=== PATIENT | female | born 1945 ===

== ENCOUNTER → 2021-12-12 14:17 | Outpatient (BNVA) | payer OTHER, MEDICARE, SELFPAY | PROVIDERS: Visit Provider Nurse Practitioner Family | DX: Z13.89 Encounter for screening for other disorder (principal) ==

== ENCOUNTER → 2022-12-16 09:21 | Outpatient (BNVA) | payer OTHER, MEDICARE, SELFPAY | PROVIDERS: PCP Clinical Nurse Specialist; Visit Provider Nurse Practitioner Family | DX: Z13.89 Encounter for screening for other disorder (principal) ==

== ENCOUNTER 2023-12-20 09:42 | Outpatient (AMB) | payer MEDICARE, OTHER, SELFPAY ==
--- NOTE | 2023-12-20 09:50 | MHC.OFFVIS ---
Vital Signs 12/20/23 09:53 Height 5 ft Weight 151 lb 2 oz BMI 29.5 BP 100/64 Blood Pressure Location Rt brachial Position Sitting Pulse 54 Pulse Source Pulse Oximeter Pulse Oximetry (%) 98 Oxygen Delivery Method Room Air Intake Visit Reasons: 1yr Follow up Sleep-Unable to conf #'s not in svs Intake Note: Patient presents for follow up sleep. patient sleep is not better still having some issues. Allergies No Known Allergies Allergy (Verified 12/20/23 09:54) HPI Comments Details: 78-yr-old female presents for annual f/u visit. Pt denies any significant interval medical changes. Pt reports she is sleeping ok. Only uses her CPAP sometimes Her left hand tremor is stable. She is does hand exercises and stretching. She continues to knit and jorge. Not noticing any stiffness. Denies hyposmia. Denies orthostatic lightheadedness. Denies recent constipation- uses epsom salt laxative prn. Notes she cannot eta corn or nuts d/t diverticulosis. Her leg cramps are better w/ the OTC spray. Deneis falls or gait changes. She is exercising- states she never rests. [facility] Medical History (Updated 12/16/22 @ 18:41 by SHANT Coleman) HTN (hypertension) Social History Alcohol intake: current Alcohol intake frequency: holidays/special occasions only Patient Tobacco Use Status: Never used Tobacco Physical Exam Vital Signs: Last Vital Signs Pulse 54 12/20/23 09:53 BP 100/64 12/20/23 09:53 Pulse Ox 98 12/20/23 09:53 Oxygen Delivery Method Room Air 12/20/23 09:53 BMI result Body Mass Index 29.5 Const General: cooperative and no acute distress Resp Effort & Inspection: normal respiratory effort and able to speak in complete sentences Neuro Other: A&O x's 3. Very mild LUE intermittent rest and postural tremor. Mild left elbow rigidity. FFM- Very mild decrease. CHIDI- slight decreased fluidity in LUE. Foot taps- Very mild decrease in LLE. Gait- stands easily, Cranial nerves: Yes CN's II-XII intact bilaterally Cognition (Neuro): normal cognition Psych Appearance: grossly normal Mental Status: mental status grossly normal Speech and movement: Clear speech present Affect: normal affect Attitude: cooperative Assessment & Plan Assessment & Plan (1) Tremor: Comment: Probably benign tremor - mild progression with L > R UE tremor, stiffness, constipation, decreased LLE foot taps Code(s): R25.1 - Tremor, unspecified Category: Medical (2) Severe obstructive sleep apnea: Comment: PSG 06-19-15 -AHI 38 lowest O2 at 77%. Not using CPAP Code(s): G47.33 - Obstructive sleep apnea (adult) (pediatric) Category: Medical (3) Periodic limb movement sleep disorder: Comment: PLMD- 38/hr. Code(s): G47.61 - Periodic limb movement disorder Category: Medical Plan Encouraged increasing CPAP use. Monitor tremor clinically. OTC balms prn for cramps/stiffness. f/u in 1 yr or sooner prn Coding Level of Care Code Est Pt Level 3 (40173) Diagnoses Tremor R25.1 Severe obstructive sleep apnea G47.33 Periodic limb movement sleep disorder G47.61
[2023-12-20 09:53] VITALS: BP 100/64; PULSE 54; O2SAT 98; BMI 29.5
== END 2023-12-20 10:39 | disposition home or self-care (01) ==
LOC: HO.HSMS 09:48
PROVIDERS: PCP Clinical Nurse Specialist; Visit Provider Nurse Practitioner Family
DX: R25.1 Tremor, unspecified (principal); G47.33 Obstructive sleep apnea (adult) (pediatric); G47.61 Periodic limb movement disorder
CPT/HCPCS: 99213

== ENCOUNTER → 2023-12-20 09:48 | Outpatient (BNVA) | payer MEDICARE, OTHER, SELFPAY | PROVIDERS: PCP Clinical Nurse Specialist; Visit Provider Nurse Practitioner Family | DX: G47.33 Obstructive sleep apnea (adult) (pediatric) (principal); G47.61 Periodic limb movement disorder; R25.1 Tremor, unspecified | CPT/HCPCS: 99212 ==

== ENCOUNTER 2025-05-02 13:54 | Outpatient (AMB) | payer MEDICARE, OTHER, SELFPAY ==
--- NOTE | 2025-05-02 13:56 | MHC.OFFVIS ---
Vital Signs 05/02/25 13:57 Weight 138 lb BP 120/70 Blood Pressure Location Rt brachial Position Sitting Pulse 78 Pulse Source Pulse Oximeter Pulse Oximetry (%) 98 Oxygen Delivery Method Room Air Intake Visit Reasons: 1 year F/U Intake Note: Patient presents for follow up sleep. patient sleep is not better still having some issues. Environment Coordinator Required: No Accompanied by: Self / Same As Patient Allergies No Known Allergies Allergy (Verified 05/02/25 14:02) Medication List - Last Reconciled 05/02/25 by SHANT Coleman alendronate mg PO amlodipine 2.5 mg PO DAILY atenolol 25 mg PO DAILY simvastatin 20 mg PO BEDTIME spironolacton-hydrochlorothiaz 25-25 mg 1 tab PO DAILY valsartan 80 mg PO DAILY HPI Comments Details: 79-yr-old female presents for annual f/u visit. Pt denies any significant interval medical changes. Other than some weight loss, which may be attributed Pt reports she is sleeping ok, and so is not using her CPAP anymore. Sometimes dozes off when reading. Her left hand tremor is overall stable, but may notice it when holding a cup of tea when walking. She still does hand exercises and stretching. She continues to knit and jorge. Also doing puzzles. Denies stiffness. Denies hyposmia. Denies orthostatic lightheadedness. Denies recent constipation- uses epsom salt laxative prn. Avoids eats corn or nuts d/t diverticulosis. Her leg cramps are better w/ the OTC spray. Denies falls or gait changes. She is exercising- does home stretches. [facility] Medical History (Updated 12/16/22 @ 18:41 by SHANT Coleman) HTN (hypertension) Social History Alcohol intake: current Alcohol intake frequency: holidays/special occasions only Patient Tobacco Use Status: Never used Tobacco Physical Exam Vital Signs: Last Vital Signs Pulse 78 05/02/25 13:57 BP 120/70 05/02/25 13:57 Pulse Ox 98 05/02/25 13:57 Oxygen Delivery Method Room Air 05/02/25 13:57 Const General: cooperative and no acute distress Resp Effort & Inspection: normal respiratory effort and able to speak in complete sentences Neuro Other: A&O x's 3. Very mild LUE intermittent rest and postural tremor. Mild left elbow rigidity. FFM- Very mild decreased. Foot taps- Very mild decrease in LLE. Gait- stands easily, good stride, steady gait. Cranial nerves: Yes CN's II-XII intact bilaterally Cognition (Neuro): normal cognition Psych Appearance: grossly normal Mental Status: mental status grossly normal Speech and movement: Clear speech present Affect: normal affect Attitude: cooperative Assessment & Plan Assessment & Plan (1) Tremor: Comment: Probably benign tremor - mild progression with L > R UE tremor, stiffness, constipation, decreased LLE foot taps Code(s): R25.1 - Tremor, unspecified Category: Medical (2) Severe obstructive sleep apnea: Comment: PSG 06-19-15 -AHI 38 lowest O2 at 77%. Not using CPAP Code(s): G47.33 - Obstructive sleep apnea (adult) (pediatric) Category: Medical (3) Periodic limb movement sleep disorder: Comment: PLMD- 38/hr. Code(s): G47.61 - Periodic limb movement disorder Category: Medical Plan Patient has stopped using her CPAP use. Monitor tremor clinically. OTC balms prn for cramps/stiffness. Continue to do regular exercise. Continue regular socialization and cognitively stimulating activities. Conitor to monitor tremor. f/u in 1 yr or sooner prn Coding Level of Care Code Est Pt Level 3 (71307) Diagnoses Tremor R25.1 Severe obstructive sleep apnea G47.33 Periodic limb movement sleep disorder G47.61
[2025-05-02 13:57] VITALS: BP 120/70; PULSE 78; O2SAT 98
--- OUTSIDE RECORDS SUMMARY | 2025-05-02 16:03 | XMS_ITS | Clinical Summary ---
Author Organization [facility] [address] [place] [address] [place] [phone] Phone Care Team Providers Care Revenue Accountant Name Role Phone Gianna Horowitz MD Primary Care Provider [phone] Allergies Active Allergy Reactions Criticality Noted Date Comments Billy Inhibitors Cough 05/16/2013 Medications BIOTIN ORAL Take 2 Tabs by mouth daily. Active multivitamin (DAILY VITAMIN ORAL) VITAMIN D OR Take 2 Tabs by mouth daily. Active zolpidem (AMBIEN) 5 mg tablet 1 TABLET AT BEDTIME NEEDED 01/10/2010 Active valsartan (DIOVAN) 80 mg tablet TAKE 1 TABLET BY MOUTH EVERY DAY 03/17/2024 Active aspirin 81 mg EC tablet 1 TABLET DAILY Active amLODIPine (NORVASC) 2.5 mg tablet Take 1 tablet (2.5 mg total) by mouth 1 (one) time each day. 90 tablet 1 12/25/2024 Active atenoloL (TENORMIN) 25 mg tablet TAKE 1 TABLET BY MOUTH EVERY DAY 90 tablet 1 02/22/2025 Active spironolactone- hydroCHLOROthia zide (ALDACTAZIDE) 25-25 mg per tablet TAKE 1 TABLET BY MOUTH EVERY DAY 90 tablet 1 02/22/2025 Active simvastatin (ZOCOR) 20 mg tablet TAKE 1 TABLET BY MOUTH EVERYDAY AT BEDTIME 90 tablet 1 03/12/2025 Active alendronate (FOSAMAX) 70 mg tablet TAKE 1 TABLET BY MOUTH ONE TIME PER WEEK 12 tablet 1 03/12/2025 Active Active Problems Problem Noted Date Diagnosed Date Pre-diabetes 07/11/2024 Tremor 02/24/2023 CKD (chronic kidney disease) stage 3, GFR 30-59 ml/min (CMS/HCC V24, CMS/HCC V28) 12/03/2021 Age-related osteoporosis without fracture 2019 CELY on CPAP 02/02/2018 Depression 06/19/2014 Pure hypercholesterolemia 01/10/2010 Benign neoplasm of rectum and anal canal 008 Overview (06/01/2024): Large rectal polyp removed at colonoscopy 07/20/2008:Tubular adenoma. Negative colonoscopy 09/25/2011, no colon cancer screening needed for 5 years. Diverticulitis of colon without hemorrhage 07/20 Overview (06/01/2024): Incidental finding at colonoscopy 07/20/2008. Diverticulosis throughout the entire colon. 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 Controlled diabetes mellitus type II without complication [place] [place] [facility] [place] 07/15/2007 Overview (06/01/2024): Last Assessment & Plan: Checking Your Blood Sugars Please check your blood sugars every day. Please check your sugars at the following times of day: before breakfast Your Blood Sugar Goals Pre Meal: 90-130 2 hours after meals: 110-160 Bedtime: 110-150 Use the Results Bring your glucometer to every appointment Write your fingerstick blood sugars down on a log sheet or record book. Bring them to your appointment Look for patterns in the numbers. The results help you and your provider make decisions about your diabetes treatment plan. Your Results and your Goals Your Result / Date of Completion Your Goal / How Often to Assess Component Value Date HGBA1C 6.5 01/24/2016 Less than 7% --- 2-4 times per year BP Readings from Last 1 Encounters: 02/04/16 158/88 Less than 140/90 --- once per year Component Value Date MALBCR 7.8 01/24/2016 Less than 30 --- once per year Component Value Date LDL 87 01/24/2016 Less than 100 --- once per year Wt Readings from Last 1 Encounters: 02/04/16 163 lb 8 oz (74.163 kg) Your goal weight by next visit: 155lb --- reassess 2-4 times a year Health Maintenance Due Topic Date Due ? Hepatitis C Screening 1995 ? Adult Immunization: Zostavax For Patients Over 60 2005 ? Pneumococcal Vaccine (#2 of 2 - Dose 1 = PPSV23, Dose 2= PCV13) 03/04/2013 ? Diabetes: Annual Eye Exam 02/19/2015 ? Diabetes: Annual Foot Exam 06/19/2015 ? Diabetes: Annual Care Plan 06/19/2015 Your Action Plan Your diabetes is well controlled and no changes are required to your current plan. Check blood glucose as directed and write down all results. Continue to work on weight loss with a goal of losing 2-4 pounds per month Contact me if you experience any barriers to care such as inability to purchase your medication, difficulty getting to your appointments or difficulty understanding your care plan When to Call your Healthcare Provider If your blood sugar falls below 70 and you do not know why or you become unconscious If you are sick and unable to take liquids because or nausea or vomiting If you have a fever over 101 If your blood sugar is 300 or higher on greater than 3 separate occasions during the same week If you are just unsure what to do Educational Resources [place] [employer] (www.diabetes.org) Centers for Disease Control and Prevention (www.cdc.gov/diabetes) This care plan was created in collaboration with Marlen Yan on 02/04/2016 Pain in limb 12/10/2006 Overview (06/01/2024): pain on the tip of the left fifth finger. Essential hypertension, benign 05/28/2006 Immunizations Name Administration Dates Next Due Influenza trivalent, 0.5mL ( Fluzone High-dose) 65yo and older 07/07/2021,05/18/2018,05/25/2016,06/20,06/19/2014,05/16/2013,06/08/2012 ,07/04/2010,05/21/2009 Influenza, Unspecified 05/27/2023 Pneumococcal conjugate 13 va lent (Prevnar 13, PCV13) 2mo and older 01/16/2019 Pneumococcal conjugate 20 va lent (Prevnar 20, PCV 20) 2mo and older 06/29/2023 Pneumococcal polysaccharide 23 valent (Pneumovax 23) 2yo and older 03/04/2012,01/09/2002 Tdap Tetanus diptheria acell ular pertussis (Boostrix; Adacel) 7yo and older 06/29/2023,02/08/2009 Surgical History Surgery Date Site/Laterality Comments COLONOSCOPY 07/20/2008 PROCEDURE: HISTORICAL COLONOSCOPY; COMMENT: Large rectal polyp: Tubular adenoma. HYSTERECTOMY PROCEDURE: HISTORICAL VAGINAL HYSTERECTOMY W/O BSO COLONOSCOPY 09/25/2011 PROCEDURE: HISTORICAL COLONOSCOPY; COMMENT: diverticulosis; no polyps. BREAST LUMPECTOMY PROCEDURE: ---- BREAST LUMP BIOPSY ----; COMMENT: DCIS 1998 BREAST SURGERY 2001ish Bilateral PROCEDURE: [place] UNLISTED PROCEDURE BREAST COLONOSCOPY 11/16/2016 PROCEDURE: HISTORICAL COLONOSCOPY; COMMENT: no polyps. BREAST BIOPSY Bilateral PROCEDURE: BX BREAST; PERC NEEDLE CORE W/IMAG GUID; COMMENT: dcis rt BREAST BIOPSY 05/22/2020 Right PROCEDURE: [place] BX BREAST W/DEVICE 1ST LESION ULTRASOUND GUID; COMMENT: apocrine metaplasia Medical History Medical History Date Comments Essential hypertension, benign 05/28/2006 D X:Essential hypertension, benign Other abnormal blood chemistry 09/17/2006 D X:Other abnormal blood chemistry Diverticulosis of colon (wit hout mention of hemorrhage) 07/20/2008 DX:Diverticulosis of colon ( without mention of hemorrhage); COMMENT: Incidental finding at colonoscopy 07/20/2008. Benign neoplasm of rectum an d anal canal 07/20/2008 DX:Benign neoplasm of rectum and anal canal; COMMENT: Large rectal polyp removed at colonoscopy 07/20/2008: Pure hypercholesterolemia 01/10/2010 DX:Pur e hypercholesterolemia Depression 06/19/2014 DX:Depression Personal history of malignan t neoplasm of breast 1980ish DX:Personal history of malig nant neoplasm of breast; COMMENT: bilat Colon polyps DX:Colon polyps Encounter for screening colonoscopy DX:Encounter for screening colonoscopy Family History Medical History Relation Name Comments Diabetes Brother 1 at age late 60 Prostate cancer Brother 2 Prostate cancer Father Breast cancer Mother 77 Diabetes Mother 77 Colon cancer Neg Hx Ovarian cancer Neg Hx Relation Name Status Comments Brother 1 Brother 2 Father Mother 77 Social History Tobacco Use Types Packs/Day Years Used Date Smoking Tobacco: Never Smokeless Tobacco: Never Tobacco Cessation:Counseling Given: Not Answered Alcohol Use Standard Drinks/Week Comments Yes 0 (1 standard drink = 0.6 oz pur e alcohol) Comments Unknown Sex and Gender Information Value Date Recorded Sex Assigned at Not on file Legal Sex Female 2:28 PM EST Gender Identity Not on file Sexual Orientation Not on file Obstetrics History Last Filed Vital Signs Vital Sign Reading Time Taken Comments Blood Pressure 110/70 01/10/2025 11:00 AM EDT Pulse 64 01/10/2025 11:00 AM EDT Temperature 36.2 C (97.1 F) 01/10/2025 11:00 AM EDT Respiratory Rate 20 01/10/2025 11:00 AM EDT Oxygen Saturation - - Inhaled Oxygen Concentration - - Weight 61.7 kg (136 lb) 01/10/2025 11:00 AM EDT Height 160 cm (5' 3 ) 01/10/2025 11:00 AM EDT Body Mass Index 24.09 01/10/2025 11:00 AM EDT Plan of Treatment Upcoming Encounters Date Type Department Care Team (Late st Contact Info) Description 05/14/2025 8:45 AM EDT Office Visit [facility] [address] [phone] Heber Flannery NP [address] [place], [place] 06/11/2025 9:00 AM EDT Appointment Radiology Department - [address] [phone] Health Maintenance Due Date Last Done Comments Zoster Vaccines (1 of 2) 1964 RSV Immunization Adult Patients (1 - 1-dose 75+ series) 2020 Falls Risk Assessment 08/08/2022 Medicare Annual Wellness Visit 08/08/2022 Social Influencers of Health Screening 08/08/2022 Diabetes: Annual Foot Exam 06/29/2024 06/29/2023 Depression Screening 08/30/2024 COVID-19 Vaccine (4 - Moderna risk season) 2024 06/12/2024, 02/14/2021, 01/14/2021 Diabetes: Annual Urine Albumin-Creatinine Ratio (uACR) 01/03/2025 01/04/2024 Influenza Vaccine (#1) 2025 4, 05/31/2023, 05/27/2023, Additional history exists Diabetes: Blood Sugar Control Test (HGBA1C) 07/12/2025 01/09/2025, 07/06/2024, 01/04/2024, Additional history exists Diabetes: Annual Retina Eye Exam 12/04/2025 12/04/2024, 06/29/2023 Diabetes: Annual GFR (Glomerular Filtration Rate) 01/09/2026 01/09/2025, 07/31/2024, 07/06/2024, Additional history exists Hypertension/CHF/CAD Annual BMP Blood Test 01/09/2026 01/09/2025, 07/31/2024, 07/06/2024, Additional history exists Colorectal Cancer Screening: Colonoscopy 10/15/2028 10/15/2023 Cholesterol Screening (Lipid Panel) 01/09/2030 01/09/2025, 07/06/2024, 02/22/2023 DTaP,Tdap,and Td Vaccines (3 - Td or Tdap) 06/29/2033 06/29/2023, 02/08/2009 Osteoporosis Screening (Bone Density Screening) 04/30/2035 04/30/2020, 12/02/2016 Hepatitis C Screening Completed 02/22/2023 Pneumococcal Vaccine: 50+ Years Completed 06/29/2023, 01/16/2019, 08/09/2017, Additional history exists HIB Vaccines Aged Out No longer eligi ble based on patient's age to complete this topic HPV Vaccines Aged Out No longer eligi ble based on patient's age to complete this topic Hepatitis A Vaccines Aged Out No long er eligible based on patient's age to complete this topic Hepatitis B Vaccines Aged Out No long er eligible based on patient's age to complete this topic IPV Vaccines Aged Out No longer eligi ble based on patient's age to complete this topic MMR Vaccines Aged Out No longer eligi ble based on patient's age to complete this topic Meningococcal ACWY Vaccine Aged Out N o longer eligible based on patient's age to complete this topic Meningococcal B Vaccine Aged Out No l onger eligible based on patient's age to complete this topic RSV Immunization Patients Under 20 months Aged Out No longer eligible based on patient's age to complete this topic Varicella Vaccines Aged Out No longer eligible based on patient's age to complete this topic Procedures Procedure Name Priority Date/Time Associated Diagnosis Comments COMPREHENSIVE METABOLIC PANEL Routine 01/09/2025 12:15 PM EDT Controlled type 2 diabetes mellitus without complication, unspecified whether long-term insulin use ([facility] V24, [facility] V28) HEMOGLOBIN A1C Routine 01/09/2025 12:15 PM EDT Controlled type 2 diabetes mellitus without complication, unspecified whether rn long term care insulin use ([facility] V24, [facility] V28) LIPID PANEL WITH REFLEX TO DIRECT LDL Routine 01/09/2025 12:15 PM EDT Controlled type 2 diabetes mellitus without complication, unspecified whether long-term insulin use ([facility] V24, [facility] V28) URINE ALBUMIN CREATININE RATIO Routine 01/04/2024 COLONOSCOPY Routine 10/15/2023 DIABETES EYE EXAM Routine 06/29/2023 DIABETES FOOT EXAM Routine 06/29/2023 HEPATITIS C SCREENING Routine 02/22/2023 DXA BONE DENSITY STUDY 1+ SITS AXIAL SKEL Routine 04/30/2020 10:09 AM EDT Other osteoporosis without current pathological fracture from Last 3 Months or Most Recently Relevant to Health Maintenance Results * Lipid panel with reflex to direct LDL (01/09/2025 12:15 PM EDT) Cholesterol 137 0 - 200 mg/dL LAB CHEMISTRY METHOD 01/09/2025 4:05 PM EDT [facility] Triglycerides 100 0 - 150 mg/dL LAB CHEMISTRY METHOD 01/09/2025 4:05 PM EDT [facility] HDL 49 >=40 mg/dL LAB CHEMISTRY METHOD 01/09/2025 4:05 PM EDT [facility] LDL Calculated 68 0 - 100 mg/dL LAB CHEMISTRY METHOD 01/09/2025 4:05 PM EDT [facility] VLDL Cholesterol Del 20 mg/dL LAB CHEMISTRY METHOD 01/09/2025 4:05 PM EDT [facility] Non HDL Chol. (LDL+VLDL) 88 <145 mg/dL LAB CHEMISTRY METHOD 01/09/2025 4:05 PM EDT [facility] Chol/HDL Ratio 2.8 0.0 - 4.4 LAB CHEMISTRY METHOD 01/09/2025 4:05 PM EDT [facility] Blood Venous blood specimen / Unknown Venipuncture / Unknown 01/09/2025 12:15 PM EDT 01/09/2025 12:15 PM EDT us Gianna Horowitz MD LAB BLOOD ORDERABLES Final Resul t Performing Organization Address [facility]/ZIP Co de Phone Number [facility] [address] [place] [address], [place] [phone] * Hemoglobin A1c (01/09/2025 12:15 PM EDT) Hemoglobin A1C 6.4 <6.5 % LAB CHEMISTRY METHOD 01/09/2025 10:21 PM EDT [facility] Mean Bld Glu Estim. 137 mg/dL LAB CHEMISTRY METHOD 01/09/2025 10:21 PM EDT [facility] Blood Venous blood specimen / Unknown Venipuncture / Unknown 01/09/2025 12:15 PM EDT 01/09/2025 12:15 PM EDT us Gianna Horowitz MD LAB BLOOD ORDERABLES Final Resul t Performing Organization Address City/[facility]/ZIP Co de Phone Number [facility] [address] [place] [address], [place] [phone] * (ABNORMAL) Comprehensive metabolic panel (01/09/2025 12:15 PM EDT) Sodium 139 133 - 145 mmol/L LAB CHEMISTRY METHOD 01/09/2025 4:[address] [facility] Potassium 3.9 3.5 - 5.5 mmol/L LAB CHEMISTRY METHOD 01/09/2025 4:[address] [facility] Chloride 103 96 - 110 mmol/L LAB CHEMISTRY METHOD 01/09/2025 4:[address] [facility] CO2 31 21 - 32 mmol/L LAB CHEMISTRY METHOD 01/09/2025 4:[address] [facility] Anion Gap 5 3 - 11 LAB CHEMISTRY METHOD 01/09/2025 4:[address] [facility] Glucose 105(H) 70 - 100 mg/dL LAB CHEMISTRY METHOD 01/09/2025 4:[address] [facility] BUN 26(H) 5 - 25 mg/dL LAB CHEMISTRY METHOD 01/09/2025 4:[address] [facility] Creatinine 1.20(H) 0.50 - 1.10 mg/dL LAB CHEMISTRY METHOD 01/09/2025 4:[address] [facility] eGFR 46(L) >=60 mL/min/1. 73m2 LAB CHEMISTRY METHOD 01/09/2025 4:[address] [facility] Comment:Calculation based on the Chronic Kidney Disease Epidemiology Collaboration (CKD-EPI) equation refit without adjustment for race. BUN/Creatinine Ratio 21.7 LAB CHEMISTRY METHOD 01/09/2025 4:[address] [facility] Calcium 9.7 8.5 - 10.5 mg/dL LAB CHEMISTRY METHOD 01/09/2025 4:[address] [facility] AST (SGOT) 23 10 - 42 unit/L LAB CHEMISTRY METHOD 01/09/2025 4:[address] [facility] ALT (SGPT) 25 10 - 60 unit/L LAB CHEMISTRY METHOD 01/09/2025 4:05 PM EDT [facility] Alkaline Phosphatase 84 42 - 121 unit/L LAB CHEMISTRY METHOD 01/09/2025 4:05 PM EDT [facility] Total Protein 8.0 6.0 - 8.0 g/dL LAB CHEMISTRY METHOD 01/09/2025 4:05 PM EDT [facility] Albumin 4.1 3.2 - 5.0 g/dL LAB CHEMISTRY METHOD 01/09/2025 4:05 PM EDT [facility] Total Bilirubin 0.4 0.0 - 1.4 mg/dL LAB CHEMISTRY METHOD 01/09/2025 4:05 PM EDT [facility] Blood Venous blood specimen / Unknown Venipuncture / Unknown 01/09/2025 12:15 PM EDT 01/09/2025 12:15 PM EDT Gianna Horowitz MD LAB BLOOD ORDERABLES Final Resul t [facility] [address] [place] [address], [place] [phone] * Urine Albumin Creatinine Ratio (01/04/2024) [facility] Urine Albumin Creatinine Ratio Abstracted [facility] Provider HEALTH MAINTENANCE Final Result * Colonoscopy (10/15/2023) [facility] Colonoscopy No Interpretation , Abstracted Anatomical Region Laterality Modality Other [facility] Provider HEALTH MAINTENANCE Final Result * Diabetes Foot Exam (06/29/2023) [facility] Diabetes: Annual Foot Exam Abstracted Result [facility] Darrell FOY HEALTH MAINTENANCE Final Result * Diabetes Eye Exam (06/29/2023) [facility] Diabetes: Annual Retina Eye Exam Abstracted Result [facility] Darrell FOY HEALTH MAINTENANCE Final Result * Hepatitis C Screening (02/22/2023) [facility] Hepatitis C Screening Abstracted us Historical Provider HEALTH MAINTENANCE Final Result * DXA BONE DENSITY STUDY 1+ SITS AXIAL SKEL (04/30/2020 10:09 AM EDT) Anatomical Region Laterality Modality Bone Densitometr y 01/08/2020 9:49 AM EDT Narrative 05/01/2020 1:03 PM EDT BONE DENSITY (DEXA) Lumbar Spine T-score is 3.3. (SD relative to 20-29 y/o adult) Z-score is 5.0. (SD relative to age matched peers) This is considered normal by WHO criteria. Left Hip T-score is 1.7. Z-score is 2.1. This is considered normal by WHO criteria IMPRESSION: This patient is considered to have normal bone density by WHO criteria. The [facility] Department of Internal Medicine recommends using National Osteoporosis Foundation (NOF) guidelines in treatment decisions related to osteoporosis. NOF guidelines suggest considering treatment for postmenopausal women and men aged 50 or older presenting with the following: History of hip or vertebral fracture. T-score = -2.5 (DXA) at the femoral neck, total hip, or spine, after appropriate evaluation to exclude secondary causes. Low bone mass (T-score between -1.0 and -2.5 at the femoral neck or spine) AND a 10-year probability of a hip fracture = 3% OR a 10-year probability of a major osteoporosis-related fracture = 20% based on the [place]-adapted WHO algorithm Please note that all treatment decisions require clinical judgment and consideration of individual patient factors, including patient preferences, co-morbidities, previous drug use, risk factors not captured in the FRAX model (e.g., frailty, falls, vitamin D deficiency, increased bone turnover, interval significant decline in bone density) and possible under- or over-estimation of fracture risk by FRAX. Optional alternative screening schedule based on radha Emerson., [facility] September 17, 2011 for patients with osteopenia (based on hip BMD T-score) is as follows: * advanced osteopenia (T scores -2.00 to -2.49), BMD testing every year * moderate osteopenia (T scores -1.50 to -1.99), BMD testing every 5 years mild osteopenia or normal BMD (T scores -1.50 and higher), BMD testing every 15 years Procedure Note Светлана Kirkland MD - 08/18/2022 BONE DENSITY (DEXA) Lumbar Spine T-score is 3.3. (SD relative to 20-29 y/o adult) Z-score is 5.0. (SD relative to age matched peers) This is considered normal by WHO criteria. Left Hip T-score is 1.7. Z-score is 2.1. This is considered normal by WHO criteria IMPRESSION: This patient is considered to have normal bone density by WHO criteria. The [facility] Department of Internal Medicine recommendsusing National Osteoporosis Foundation (NOF) guidelines in treatment decisions related toosteoporosis. NOF guidelines suggest considering treatment for postmenopausal women and menaged 50 or older presenting with the following: History of hip or vertebral fracture. T-score = -2.5 (DXA) at the femoral neck, total hip, or spine, afterappropriate evaluation to exclude secondary causes. Low bone mass (T-score between -1.0 and -2.5 at the femoral neck or spine)AND a 10-year probability of a hip fracture = 3% OR a 10-year probability of a majorosteoporosis-related fracture = 20% based on the [place]-adapted WHO algorithm Please note that all treatment decisions require clinical judgment andconsideration of individual patient factors, including patient preferences, co- morbidities,previous drug use, risk factors not captured in the FRAX model (e.g., frailty, falls, vitaminD deficiency, increased bone turnover, interval significant decline in bone density) andpossible under- or over-estimation of fracture risk by FRAX. Optional alternative screening schedule based on amaya Emerson al., NEJMJanuary 2011 for patients with osteopenia (based on hip BMD T-score) is as follows: * advanced osteopenia (T scores -2.00 to -2.49), BMD testing every year * moderate osteopenia (T scores -1.50 to -1.99), BMD testing every 5years mild osteopenia or normal BMD (T scores -1.50 and higher), BMD testingevery 15 years Gianna Horowitz MD [facility] DXA PROCEDURES Final Result from Last 3 Months or Most Recently Relevant to Health Maintenance Insurance MEDICARE [facility] Care Teams Revenue Accountant Relationship Specialty Start Date End Date Gianna Horowitz MD [address] [place] [address] PCP - General 06/29/1999
--- OUTSIDE RECORDS SUMMARY | 2025-05-02 16:03 | XMS_ITS ---
Author Name [facility] Organization Unknown Care Team Organization Name Specialty Phone Email Start Date End Da alejandra [facility] 04/18/2025 [facility] 07/07/2022 04/17/2024
== END 2025-05-02 14:46 | disposition home or self-care (01) ==
LOC: HO.HSMS 13:54
PROVIDERS: PCP Clinical Nurse Specialist; Visit Provider Nurse Practitioner Family
DX: R25.1 Tremor, unspecified (principal); G47.33 Obstructive sleep apnea (adult) (pediatric); G47.61 Periodic limb movement disorder
CPT/HCPCS: 99213

== ENCOUNTER → 2025-05-02 13:54 | Outpatient (BNVA) | payer MEDICARE, OTHER, SELFPAY | PROVIDERS: PCP Clinical Nurse Specialist; Visit Provider Nurse Practitioner Family | DX: G47.33 Obstructive sleep apnea (adult) (pediatric) (principal); G47.61 Periodic limb movement disorder; R25.1 Tremor, unspecified | CPT/HCPCS: 99212 ==